=== PATIENT | male | born 1945 | race African-American/Black ===

== ENCOUNTER 2025-06-19 22:12 | Emergency (ER) | payer OTHER, SELFPAY ==
--- NOTE | 2025-06-19 | ECG_ITS ---
Test Reason : SYNCOPY Blood Pressure : */* mmHG Vent. Rate : 75 BPM Atrial Rate : 75 BPM P-R Int : 152 ms QRS Dur : 86 ms QT Int : 406 ms P-R-T Axes : 49 -22 2 degrees QTcB Int : 453 ms Normal sinus rhythm Nonspecific ST and T wave abnormality Abnormal ECG No previous ECGs available Referred By: Generic ED Physician Electronically Signed By: Fabricio Nugent
--- NOTE | ~2025-06-19 | XR_ITS ---
CLINICAL HISTORY: syncope 1 view chest x-ray Comparison: None provided Findings: No consolidation or pleural effusion. Normal size heart. No acute fracture. IMPRESSION: 1. No acute findings. This document has been electronically signed by: Angeli Roper MD on 06/19/2025 23:29:00
[2025-06-19 22:23] VITALS: BP 120/71; BP 125/87; PULSE 82; PULSE 85; RESP 15; TEMP 36.8; O2SAT 99; BMI 24.7
[2025-06-19 22:39] LABS: Hematocrit 39.3 % (42.0-52.0); Hemoglobin 12.6 g/dl (14.0-18.0); Imm Gran Abs Auto 0.01 X10*3/uL (0.00-0.03); Imm Gran Pct Auto 0.2 % (0.0-0.4); Lymphocytes Absolute Auto 1.3 X10*3/uL (1.2-4.9); MANUAL DIFF FLAG NO; Mean Corpuscular HGB Conc 32.1 g/dl (31.0-36.0); Mean Corpuscular Hemoglobin 29.4 pg (27.0-33.0); Mean Corpuscular Volume 91.8 fL (80.0-98.0); NRBC Abs Auto 0.000 X10*3/uL (0.0-0.012); NRBC Pct Auto 0.0 /100WBC (0.0-0.2); Platelet Count 231 X10*3/uL (160-400); Red Blood Count 4.28 X10*6/uL (4.60-5.80); White Blood Count 4.0 X10*3/uL (4.8-10.8)
--- OUTSIDE RECORDS SUMMARY | 2025-06-19 22:48 | XMS_ITS | Encounter Summary ---
Author Organization [facility] Address [address] [place] [address] Care Team Providers Care Armored Machine Operator Name Role Phone Seven Gilliam MD Primary Care Provider Unava ilable Encounter Details Date Type Department Care Team (Latest Contact Info) Description 10/01/2017 Transcribed Orders [place] [facility] [address] [place] [address] Seven Gilliam MD Normocytic hypochromic anemia (Primary Dx); Essential hypertension, malignant; Hyperlipemia Social History Tobacco Use Types Packs/Day Years Used Date Smoking Tobacco: Never Smokeless Tobacco: Never Alcohol Use Standard Drinks/Week Comments Yes 2 (1 standard drink = 0.6 oz pur e alcohol) Sex and Gender Information Value Date Recorded Sex Assigned at Not on file Legal Sex Male 7:21 AM EST Gender Identity Not on file Sexual Orientation Not on file documented as of this encounter Plan of Treatment Not on file documented as of this encounter Results * (ABNORMAL) Iron and TIBC (10/01/2017 1:31 PM EST) Iron 185(H) 59 - 158 ug/dL 10/01/2017 5:46 PM EST [facility] Iron Saturation 67(H) 20 - 50 % 8 5:46 PM EST [facility] TIBC 276 250 - 450 ug/dL 10/01/2017 5:46 PM [facility] Blood specimen (specimen) Venipuncture / Unknown 10/01/2017 1:31 PM EST 10/01/2017 1:31 PM EST us Seven Gilliam MD LAB BLOOD ORDERABLES Final R esult [facility] [address] [place] [address], [facility] [phone] * (ABNORMAL) LIPID PANEL (10/01/2017 1:31 PM EST) Cholesterol 191 See Comment mg/dL 10/01/2017 5:38 PM [facility] Comment: Total Cholesterol (mg/dL) Adults (>18 years) Children (<18 years) Desirable <200 <170 Borderline-High 200-239 170-199 High >=240 >=200 HDL 72 >=40 mg/dL 10/01/2017 5:38 PM [facility] Triglycerides 60 <=150 mg/dL 10/01/2017 5:38 PM [facility] Comment: Triglycerides (mg/dL) Adults (>18 years) Children (<18 years) Desirable <150 Not Established Borderline-High 150-199 Not Established High 200-499 Not Established Chol/HDL Ratio 2.7 <=5 10/01/2017 5:38 PM [facility] LDL Calculated 107(H) See Comment mg/dL 10/01/2017 5:38 PM [facility] Comment: LDL Cholesterol (mg/dL) Adults (>18 years) Children (<18 years) Desirable <100 <110 Above Desirable 100-129 Not Established Borderline-High 130-159 110-129 High 160-189 >=130 Very High >=190 Not Established Blood specimen (specimen) Venipuncture / Unknown 10/01/2017 1:31 PM EST 10/01/2017 1:31 PM EST us Seven Gilliam MD LAB BLOOD ORDERABLES Final R esult [facility] [place] [address], [facility] [phone] documented in this encounter Visit Diagnoses Diagnosis Normocytic hypochromic anemia- Primary Iron deficiency anemia, unspecified Essential hypertension, malignant Hyperlipemia Other and unspecified hyperlipidemia documented in this encounter Care Teams Armored Machine Operator Relationship Specialty Start Date End Date Seven Gilliam MD PCP - General Internal Medicine 09/03/13 documented as of this encounter
--- OUTSIDE RECORDS SUMMARY | 2025-06-19 22:48 | XMS_ITS | Clinical Summary ---
Author Organization [facility] Address [address] [place] [address] Care Team Providers Care Hand Turner Name Role Phone Melany Andrade MD Primary Care Provider [phone] Allergies No known active allergies Medications Multiple Vitamin (Multi-Vitamin) tablet Take 1 tablet by mouth daily. Active omega-3 fatty acids 1000 MG Cap capsule Take 2 capsules (2 g total) by mouth. Active chlorthalidone (HYGROTON) 25 MG tablet Take 0.5 tablets (12.5 mg total) by mouth daily. Active atorvastatin (LIPITOR) 20 MG tablet Take 1 tablet (20 mg total) by mouth daily. Active tadalafil (CIALIS) 20 MG tablet Take 1 tablet (20 mg total) by mouth daily as needed for erectile dysfunction. Active latanoprost (XALATAN) 0.005 % ophthalmic solution 1 drop nightly. Active terbinafine (LamiSIL) 250 MG tablet Take 1 tablet (250 mg total) by mouth daily. Active Active Problems No known active problems Family History Medical History Relation Name Comments Lung cancer Father Breast cancer Mother Breast cancer Sister Relation Name Status Comments Father Mother Sister Social History Tobacco Use Types Packs/Day Years Used Date Smoking Tobacco: Never Smokeless Tobacco: Never Tobacco Cessation:Counseling Given: Not Answered Alcohol Use Standard Drinks/Week Comments Not Currently 2 (1 standard drink = 0.6 oz pur e alcohol) with dinner Sex and Gender Information Value Date Recorded Sex Assigned at Male 03/25/2023 10:57 AM EDT Legal Sex Male 7:14 PM EST Gender Identity Male 03/25/2023 10:57 AM EDT Sexual Orientation Choose not to disclose 2022 10:57 AM EDT Last Filed Vital Signs Vital Sign Reading Time Taken Comments Blood Pressure 132/85 03/25/2023 11:02 AM EDT Pulse 101 03/25/2023 11:02 AM EDT Temperature - - Respiratory Rate - - Oxygen Saturation - - Inhaled Oxygen Concentration - - Weight 73 kg (161 lb) 03/25/2023 11:02 AM EDT Height 171.5 cm (5' 7.5 ) 03/25/2023 11:02 AM ED T Body Mass Index 24.84 03/25/2023 11:02 AM EDT Plan of Treatment Health Maintenance Due Date Last Done Comments Advance Care Planning 1945 Hepatitis C Virus Screening 1945 DTaP/Tdap/Td Vaccines (1 - Tdap) 1965 Pneumococcal Vaccines 50+ (1 of 1 - PCV) 1996 Zoster (Shingles) Vaccine (1 of 2) 1996 RSV Vaccine 60 years and old er and Patients (1 - 1-dose 75+ series) 2021 Influenza Vaccine 04/08/2025 COVID-19 Vaccine ( - 2023-2 5 season) 2025 Hepatitis B Vaccines Aged Out No long er eligible based on patient's age to complete this topic [place] [id number] Care Teams Hand Turner Relationship Specialty Start Date End Date Melany Andrade MD [address] [place], [place] [address] PCP - General Internal Medicine 02/27/23
--- OUTSIDE RECORDS SUMMARY | 2025-06-19 22:48 | XMS_ITS ---
Author Name [facility] History of Medication Use Medication Directions Dispensed Refills Start Date End Date Stat us atorvastatin (LIPITOR) 20 MG tablet Take 1 tablet (20 mg total) by mouth daily. active chlorthalidone (HYGROTON) 25 MG tablet Take 0.5 tablets (12.5 mg total) by mouth daily. active latanoprost (XALATAN) 0.005 % ophthalmic solution 1 drop nightly. active Multiple Vitamin (Multi-Vitamin) tablet Take 1 tablet by mouth daily. active omega-3 fatty acids 1000 MG Cap capsule Take 2 capsules (2 g total) by mouth. active tadalafil (CIALIS) 20 MG tablet Take 1 tablet (20 mg total) by mouth daily as needed for erectile dysfunction. active terbinafine (LamiSIL) 250 MG tablet Take 1 tablet (250 mg total) by mouth daily. active Encounters Encounter Type Encounter Reason Primary Diagnosis Location Date Ambulatory Unilateral ingui nal hernia, without obstruction or gangrene, not specified as recurrent [facility] 03[facility]23 [facility] 03/13/2023 [facility]ulatory [facility] 03/13/2023 Ambulatory Left lower quadr ant pain [facility] 03/03/2023 Care Team Organization Name Specialty Phone Email Start Date End [facility] 07/11/2023 024 [facility] 03/03/2023 03/03/2023 [facility] 03/03/2023
--- OUTSIDE RECORDS SUMMARY | 2025-06-19 22:48 | XMS_ITS | Encounter Summary ---
Author Organization [facility] Address [address] [place] [address] Care Team Providers Care Underground Bolting Machine Operator Name Role Phone Seven Gilliam MD Primary Care Provider Unava ilable Encounter Details Date Type Department Care Team (Latest Contact Info) Description 09/25/2016 Transcribed Orders [place] [facility] [address] [place] [address] Seven Gilliam MD Essential hypertension, malignant (Primary Dx); Other and unspecified hyperlipidemia; Iron deficiency anemia, unspecified Social History Tobacco Use Types Packs/Day Years Used Date Smoking Tobacco: Never Alcohol Use Standard Drinks/Week Comments [...] documented as of this encounter Results * LIPID PANEL (09/25/2016 11:31 AM EST) [facility] Cholesterol 176 See Comment mg/dL 09/25/2016 2:05 PM EST [facility] Comment: Total Cholesterol (mg/dL) Adults (>18 years) Children (<18 years) Desirable <200 <170 Borderline-High 200-239 170-199 High >=240 >=200 HDL 73 >=40 mg/dL 09/25/2016 2:05 PM [facility] Triglycerides 40 See Comment mg/dL 09/25/2016 2:05 PM [facility] Comment: Triglycerides (mg/dL) Adults (>18 years) Children (<18 years) Desirable <150 Not Established Borderline-High 150-199 Not Established High 200-499 Not Established Chol/HDL Ratio 2.4 <=5 09/25/2016 2:05 PM [facility] LDL Calculated 95 See Comment mg/dL 09/25/2016 2:05 PM [facility] Comment: LDL Cholesterol (mg/dL) Adults (>18 years) Children (<18 years) Desirable <100 <110 Above Desirable 100-129 Not Established Borderline-High 130-159 110-129 High 160-189 >=130 Very High >=190 Not Established Blood specimen (specimen) Venipuncture / Unknown 09/25/2016 11:31 AM EST 09/25/2016 11:31 AM EST Narrative [facility] - 09/25/2016 2:05 PM EST R1 us Seven Gilliam MD LAB BLOOD ORDERABLES Final R esult [facility] [address] [place] [address], [facility] [phone] documented in this encounter Visit Diagnoses Diagnosis Essential hypertension, malignant- Primary Other and unspecified hyperlipidemia Iron deficiency anemia, unspecified documented in this encounter Care Teams Underground Bolting Machine Operator Relationship Specialty Start Date End Date Seven Gilliam MD PCP - General Internal Medicine 09/03/13 documented as of this encounter
--- OUTSIDE RECORDS SUMMARY | 2025-06-19 22:48 | XMS_ITS | Encounter Summary ---
Author Organization [facility] Address [address] [place] [address] Care Team Providers Care Emergency Communications Dispatcher Name Role Phone Seven Gilliam MD Primary Care Provider Unava ilable Encounter Details Date Type Department Care Team (Late st Contact Info) Description 12/15/2014 Scanned Document [facility] at [facility] [address] [address] Obtain, Unable To Social History Tobacco Use Types Packs/Day Years Used Date Smoking Tobacco: Never Assessed Sex and Gender Information Value Date Recorded Sex Assigned at Not on file Legal Sex Male 7:21 AM EST Gender Identity Not on file Sexual Orientation Not on file documented as of this encounter Plan of Treatment Not on file documented as of this encounter Visit Diagnoses Not on filedocumented in this encounter Care Teams Emergency Communications Dispatcher Relationship Specialty Start Date End Date Seven Gilliam MD PCP - General Internal Medicine 09/03/13 documented as of this encounter
--- OUTSIDE RECORDS SUMMARY | 2025-06-19 22:48 | XMS_ITS | Encounter Summary ---
Author Organization [facility] Address [address] [place] [address] Care Team Providers Care Customer Resolution Specialist Name Role Phone Seven Gilliam MD Primary Care Provider Unava ilable Encounter Details Date Type Department Care Team (Latest Contact Info) Description 09/07/2014 Transcribed Orders [place] [facility] - [facility] [address] [place] [address] Seven Gilliam MD Iron deficiency anemia secondary to blood loss (chronic) (Primary Dx); Pure hypercholesterolemia ; Unspecified essential hypertension Social History Tobacco Use Types Packs/Day Years Used Date Smoking Tobacco: Never Assessed Sex and Gender Information Value Date Recorded Sex Assigned at Not on file Legal Sex Male 7:21 AM EST Gender Identity Not on file Sexual Orientation Not on file documented as of this encounter Plan of Treatment Not on file documented as of this encounter Results * (ABNORMAL) LIPID PANEL (09/07/2014 10:38 AM EST) Cholesterol 207(H) 0 - 200 mg/dL [facility] Comment: < 200 mg/dL (Desirable) 200 - 239 mg/dL (Borderline) >= 240 mg/dL (High risk) HDL 66(H) 40 - 65 mg/dL [facility] Comment: < 40 mg/dL (High risk) >= 60 mg/dL (Low risk) Chol/HDL Ratio 3 [facility] Triglycerides 53 30 - 150 mg/dL [facility] Comment: As of Saturday, September 21, 2013 the reference range for triglycerides will be 30-150mg/dL (previous 0-150mg/dL). For any questions please contact Dian Zaragoza at , or Dr. Rahul Blood at [phone]. Blood specimen (specimen) 09/07/2014 10:38 AM EST us Seven Gilliam MD LAB BLOOD ORDERABLES Final R esult [facility] [address] [place] [id number] * (ABNORMAL) COMPREHENSIVE METABOLIC PANEL (09/07/2014 10:38 AM EST) Glucose 101(H) 70 - 100 mg/dL [facility] BUN 13 6 - 19 mg/dL [facility] Creatinine 1.0 0.6 - 1.2 mg/dL [facility] BUN/Creatinine Ratio 13.0 10.0 - 20.0 [facility] Anion Gap 7 5 - 15 [facility] CO2 29.0 23.0 - 29.0 mmol/L [facility] Chloride 106 96 - 108 mmol/L [facility] Sodium 142 133 - 145 mmol/L [facility] Potassium 4.6 3.3 - 5.0 mmol/L [facility] Comment: As of 2014 the new reference range of Potassium will be 3.3 - 5.0 mmol/L. The previous reference range was 3.3 - 5.1 mmol/L. Calcium 9.0 8.4 - 10.2 mg/dL [facility] Total Protein 6.5 5.8 - 7.6 g/dL [facility] Albumin 4.3 3.9 - 4.8 g/dL [facility] Globulin 2.2(L) 2.3 - 3.5 g/dL [facility] A/G Ratio 2.0 1.0 - 2.2 [facility] Aspartate Aminotransferase (AST) 24 0 - 37 U/L [facility] Alanine Aminotransferase (ALT) 24 0 - 40 U/L [facility] Alkaline Phosphatase 59 39 - 117 U/L [facility] Total Bilirubin 0.5 <1.20 mg/dL [facility] Blood specimen (specimen) 09/07/2014 10:38 AM EST us Seven Gilliam MD LAB BLOOD ORDERABLES Final R esult [facility] [address] [place] [address] * (ABNORMAL) CBC AND DIFFERENTIAL (09/07/2014 10:38 AM EST) CBC with Differential See Below [facility] WBC 4.5 4.0 - 10.5 x 1000/uL [facility] RBC 4.7 4.7 - 6.0 M/uL [facility] Hemoglobin 13.7 13.5 - 18.0 g/dL [facility] Hematocrit 42.1 42.0 - 52.0 % [facility] MCV 89 78 - 100 fL [facility] MCH 28.9 27.0 - 31.0 pg [facility] MCHC 32.5 32.0 - 36.0 g/dL [facility] RDW 12.8 11.5 - 14.0 % [facility] Platelets 269 150 - 450 x 1000/uL [facility] MPV 8.2 6.0 - 9.5 fL [facility] Neutrophils 52 42 - 75 % [facility] Lymphocytes 33 21 - 51 % [facility] Monocytes 10(H) 2 - 9 % [facility] Eosinophils 4 0 - 10 % [facility] Basophils 1 0 - 1 % [facility] ANC (Abs Neutrophil Count) 2.3 1.4 - 6.5 x 1000/uL [facility] Absolute Lymphocyte Count 1.5 1.2 - 3.4 x 1000/uL [facility] Blood specimen (specimen) ARM NEC / Unknown 09/07/2014 10:38 AM EST us Seven Gilliam MD LAB BLOOD ORDERABLES Final R esult [facility] [address] [place] [address] documented in this encounter Visit Diagnoses Diagnosis 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
--- OUTSIDE RECORDS SUMMARY | 2025-06-19 22:48 | XMS_ITS | Clinical Summary ---
Author Organization [facility] [address] [facility] Address [address] [place] [address] Care Team Providers Care Senior Financial Consultant Name Role Phone Seven Gilliam MD Primary Care Provider Bull illisa Allergies No known active allergies Medications * This document contains information received from the source organization and may not represent a complete record from that organization. fish oil-omega-3 fatty acids 1,000 mg capsule Take 2 g by mouth daily. Active multivitamin (MULTIVITAMIN) tablet Take 1 tablet by mouth daily. Active losartan (COZAAR) 50 MG tablet Take 50 mg by mouth daily. 0 01/03/2015 Active meloxicam (MOBIC) 15 MG tablet Take 15 mg by mouth as needed. 2 09/01/2014 Active Active Problems Problem Noted Date Diagnosed Date Prostate cancer (HC Code) 01/16/2015 Overview (01/16/2015): Family History Medical History Relation Name Comments Cancer Father Cancer Mother Breast cancer Sister Multiple myeloma Sister Anal Cancer Neg Hx Bladder cancer Neg Hx Cervical cancer Neg Hx Colon cancer Neg Hx Diabetes Neg Hx Endometrial cancer Neg Hx Esophageal cancer Neg Hx Head & Neck cancer Neg Hx Heart disease Neg Hx Hypertension Neg Hx Leukemia Neg Hx Lung cancer Neg Hx Lymphoma Neg Hx Melanoma Neg Hx Ovarian cancer Neg Hx Pancreatic cancer Neg Hx Prostate cancer Neg Hx Rectal cancer Neg Hx Renal cancer Neg Hx Thyroid cancer Neg Hx Relation Name Status Comments Father Mother Sister Alive Social History Tobacco Use Types Packs/Day Years Used Date Smoking Tobacco: Never Smokeless Tobacco: Never Alcohol Use Standard Drinks/Week Comments Yes 2 (1 standard drink = 0.6 oz pur e alcohol) Sex and Gender Information Value Date Recorded Sex Assigned at Not on file Legal Sex Male 7:21 AM EST Gender Identity Not on file Sexual Orientation Not on file Last Filed Vital Signs Vital Sign Reading Time Taken Comments Blood Pressure 157/104 06/28/2017 9:23 AM EDT Pulse 76 06/28/2017 9:23 AM EDT Temperature 36.8 C (98.2 F) 06/28/2017 9:23 AM EDT Respiratory Rate 18 06/28/2017 9:23 AM EDT Oxygen Saturation 97% 06/28/2017 9:23 AM EDT Inhaled Oxygen Concentration - - Weight 74.8 kg (165 lb) 06/28/2017 9:23 AM EDT Height 167.6 cm (5' 6 ) 06/30/2015 10:48 AM EDT Body Mass Index 26.63 06/30/2015 10:48 AM EDT Plan of Treatment Health Maintenance Due Date Last Done Comments HIV screening 1959 Hepatitis C screening 1964 Tetanus adult (Td q 10,TDAP once) 1966 Pneumococcal Vaccine (50+ years) (1 of 1 - PCV) 1996 Shingles vaccine (Shingrix) (1 of 2 - Shingrix (RZV) 2 Dose Standard Series) 1996 Diabetes screening 10/01/2020 10/01/2017, 0 04/26/2017, 09/25/2016, Additional history exists RSV Immunization (1 - 1-dose 75+ series) 2021 Lipid disorder screening 10/01/2022 018, 09/25/2016, 09/09/2015, Additional history exists Influenza vaccine 04/08/2025 Covid-19 vaccine series ( season) 2025 Colon cancer screening, Colonoscopy Discontinued 10/25/2013, 10/25/2013 Meningococcal B Vaccine Aged Out No l onger eligible based on patient's age to complete this topic Meningococcal Vaccine Aged Out No angelic sadiq eligible based on patient's age to complete this topic Procedures Procedure Name Priority Date/Time Associated Diagnosis Comments COMPREHENSIVE METABOLIC PANEL Routine 10/01/2017 1:31 PM EST Normocytic hypochromic anemia Essential hypertension, malignant Hyperlipemia LIPID PANEL Routine 10/01/2017 1:31 PM EST Normocytic hypochromic anemia Essential hypertension, malignant Hyperlipemia COLONOSCOPY (IMAGES) Routine 10/25/2013 10:37 AM EST from Last 3 Months or Most Recently Relevant to Health Maintenance Results * Comprehensive metabolic panel (10/01/2017 1:31 PM EST) Sodium 141 136 - 145 mmol/L 10/01/2017 5:38 PM [facility] Potassium 4.6 3.3 - 5.0 mmol/L 10/01/2017 5:38 PM [facility] Chloride 103 96 - 108 mmol/L 10/01/2017 5:38 PM [facility] CO2 27 22 - 29 mmol/L 10/01/2017 5:38 PM [facility] Anion Gap 11 7 - 17 10/01/2017 5:38 PM [facility] Glucose 94 70 - 100 mg/dL 10/01/2017 5:38 PM [facility] BUN 14 8 - 23 mg/dL 10/01/2017 5:38 PM [facility] Creatinine 1.10 0.50 - 1.20 mg/dL 10/01/2017 5:38 PM [facility] Calcium 9.0 8.8 - 10.2 mg/dL 10/01/2017 5:38 PM [facility] BUN/Creatinine Ratio 12.7 10.0 - 20.0 10/01/2017 5:38 PM [facility] Total Protein 6.6 6.6 - 8.7 g/dL 10/01/2017 5:38 PM [facility] Albumin 3.9 3.9 - 4.9 g/dL 10/01/2017 5:38 PM [facility] Total Bilirubin 0.6 0.0 - 1.2 mg/dL 10/01/2017 5:38 PM [facility] Alkaline Phosphatase 61 40 - 129 U/L 10/01/2017 5:38 PM [facility] Alanine Aminotransferase (ALT) 18 0 - 41 U/L 10/01/2017 5:38 PM [facility] Aspartate Aminotransferase (AST) 24 0 - 40 U/L 10/01/2017 5:38 PM [facility] Globulin 2.7 2.3 - 3.5 g/dL 10/01/2017 5:38 PM [facility] A/G Ratio 1.4 1.0 - 2.2 10/01/2017 5:38 PM [facility] AST/ALT Ratio 1.3 0.3 - 4.9 10/01/2017 5:38 PM [facility] eGFR (Afr Amer) >60 >60 mL/min/1. 73m2 10/01/2017 5:38 PM [facility] Comment: Values under 60mL/min/1.73m2 may indicate CKD if noted for more than 3 months. eGFR is only valid if creatinine is at steady state. eGFR (NON -Japanese) >60 >60 mL/min/1. 73m2 10/01/2017 5:38 PM [facility] Comment: Values under 60mL/min/1.73m2 may indicate CKD if noted for more than 3 months. eGFR is only valid if creatinine is at steady state. Blood specimen (specimen) Venipuncture / Unknown 10/01/2017 1:31 PM EST 10/01/2017 1:31 PM EST Seven Gilliam MD LAB BLOOD ORDERABLES Final R esult [facility] [address] [place] [address], [facility] [phone] * (ABNORMAL) LIPID PANEL (10/01/2017 1:31 PM EST) Cholesterol 191 See Comment mg/dL 10/01/2017 5:38 PM [facility] Comment: Total Cholesterol (mg/dL) Adults (>18 years) Children (<18 years) Desirable <200 <170 Borderline-High 200-239 170-199 High >=240 >=200 HDL 72 >=40 mg/dL 10/01/2017 5:38 PM [facility] Triglycerides 60 <=150 mg/dL 10/01/2017 5:38 PM [facility] Comment: Triglycerides (mg/dL) Adults (>18 years) Children (<18 years) Desirable <150 Not Established Borderline-High 150-199 Not Established High 200-499 Not Established Chol/HDL Ratio 2.7 <=5 10/01/2017 5:38 PM [facility] LDL Calculated 107(H) See Comment mg/dL 10/01/2017 5:38 PM [facility] Comment: LDL Cholesterol (mg/dL) Adults (>18 years) Children (<18 years) Desirable <100 <110 Above Desirable 100-129 Not Established Borderline-High 130-159 110-129 High 160-189 >=130 Very High >=190 Not Established Blood specimen (specimen) Venipuncture / Unknown 10/01/2017 1:31 PM EST 10/01/2017 1:31 PM EST Seven Gilliam MD LAB BLOOD ORDERABLES Final R esult [facility] [address] [place] [address], [facility] [phone] * Colonoscopy (10/25/2013 10:37 AM EST) Colonoscopy Indications: Screening. Consent: The benefits, risks, and alternatives to the procedure were discussed and informed consent was obtained from the patient. Preparation: Pulse, pulse oximetry and blood pressure were monitored throughout the procedure. The patient was kept NPO. ASA Classification: Class 1 - Patient has no organic, physiologic, biochemical, or psychiatric disturbance. Mallampati Classification: Class 1 - Uvula, faucial pillars, soft palate visible. H & P: Prior to sedation, pre-procedure update to the history and physical examination was performed. Medications: Versed 2 mg IV during the procedure. Demerol 50 mg IV during the procedure. Rectal Exam: Normal rectal exam. No fissures. No fistulas. No masses. Procedure: The colonoscope was passed with great difficulty through the anus under direct visualization; it was extended to the cecum, confirmed by appendiceal orifice, ileocecal valve, appendiceal orifice, cecal strap (ak chin's foot), ileocecal valve, RLQ palpation, distance, landmarks, photographs, and transillumination. The patient required counterpressure and positioning on the back to aid in the passage of the scope. The scope was withdrawn and the mucosa was carefully examined. The quality of the preparation was good. The views were good. The patient's toleration of the procedure was good. Retroflexion was performed in the rectum. Findings: Colonoscopy ws extremely diffficult due to dense pelvic adhesions from prior prostate surgeryu with fixation of multiple loops deep with the pelvis. Passage was difficult despite the use of a PCF-H180 pediatric scope. Each segment of the colon was repeatedly examined. In addition, a second-look of the left colon was performed to 55 cms and no additional findings noted. Internal hemorrhoid tags were found in the rectum. There was redundancy of the sigmoid colon and descending colon. There was evidence of mild diverticulosis in the sigmoid colon. Complications: There were no complications associated with the procedure. Impressions: Colonoscopy ws extremely diffficult due to dense pelvic adhesions from prior prostate surgeryu with fixation of multiple loops deep with the pelvis. Passage was difficult despite the use of a PCF-H180 pediatric scope. Each segment of the colon was repeatedly examined. In addition, a second-look of the left colon was performed to 55 cms and no additional findings noted. Internal hemorrhoid tags were found in the rectum. Redundancy of the sigmoid colon and descending colon was found. Mild diverticulosis (562.10) found in the sigmoid colon. Recommendations: No further screening necessary above age 65. Resume regular diet as tolerated. Continue current medications. Follow-up appointment with primary care physician on an as needed basis. Procedure Codes: [92086]Colonoscopy Performed By: Dr. Isaak Velázquez cc:Dr. Seven Gilliam Timing: Time to cecum: 11 min Cecum to withdrawal: 19 min Duration: 30 min [facility] 10/25/2013 10:3 7 AM EST Joe Velázquez MD GI PROCEDURE ORDERABLES Abena lucio Result [facility] from Last 3 Months or Most Recently Relevant to Health Maintenance Insurance MEDICARE [facility] MEDICARE [facility] MEDICARE [facility] MEDICARE [employer] Care Teams Senior Financial Consultant Relationship Specialty Start Date End Date Seven Gilliam MD PCP - General Internal Medicine 09/03/13
--- OUTSIDE RECORDS SUMMARY | 2025-06-19 22:48 | XMS_ITS | Encounter Summary ---
Author Organization [facility] Address [address] [place] [address] Care Team Providers Care Physician Office Clin Asst Name Role Phone Seven Gilliam MD Primary Care Provider Unava ilable Encounter Details Date Type Department Care Team (Late st Contact Info) Description 05/01/2015 Documentation [facility] [address] [place] [address] Nemo Davis [address] [place] [address] Social History Tobacco Use Types Packs/Day Years Used Date Smoking Tobacco: Never Alcohol Use Standard Drinks/Week Comments Yes 2 (1 standard drink = 0.6 oz pur e alcohol) Sex and Gender Information Value Date Recorded Sex Assigned at Not on file Legal Sex Male 7:21 AM EST Gender Identity Not on file Sexual Orientation Not on file documented as of this encounter Progress Notes * Nemo Davis - 05/01/2015 9:57 AM EDT Images from the original note were not included. [facility] Progress Note This is a 69 y.o. male who was provided services by [facility]. Service Provided By:: Nemo Davis Patient Status: return Length of Appointment: 60 minutes Pre-Treatment Total: 0.4 Post-Treatment Total: 0 documented in this encounter Plan of Treatment Not on file documented as of this encounter Visit Diagnoses Not on filedocumented in this encounter Care Teams Physician Office Clin Asst Relationship Specialty Start Date End Date Seven Gilliam MD PCP - General Internal Medicine 09/03/13 documented as of this encounter
--- OUTSIDE RECORDS SUMMARY | 2025-06-19 22:48 | XMS_ITS | Encounter Summary ---
Author Organization [facility] and [facility] Address [address] [place] [address] Care Team Providers Care Radiation Therapy Technician Name Role Phone Seven Gilliam MD Primary Care Provider Unava ilable Encounter Details Date Type Department Care Team (Latest Contact Info) Description 09/09/2015 Transcribed Orders [facility] [address] [place] [address] Seven Gilliam MD Normocytic hypochromic anemia (Primary Dx); Hyperestrogenism; Essential hypertension, malignant Social History Tobacco Use Types Packs/Day Years [...] this encounter Results * (ABNORMAL) LIPID PANEL (09/09/2015 9:48 AM EST) Cholesterol 192 0 - 200 mg/dL [facility] Comment: < 200 mg/dL (Desirable) 200 - 239 mg/dL (Borderline) >= 240 mg/dL (High risk) HDL 80(H) 40 - 65 mg/dL [facility] Comment: < 40 mg/dL (High risk) >= 60 mg/dL (Low risk) Triglycerides 83 30 - 150 mg/dL [facility] Chol/HDL Ratio 2 [facility] Blood specimen (specimen) 09/09/2015 9:48 AM EST us Seven Gilliam MD LAB BLOOD ORDERABLES Final R esult Performing Organization Address [facility] Co de Phone Number [facility] [address] [place] [phone] * (ABNORMAL) COMPREHENSIVE METABOLIC PANEL (09/09/2015 9:48 AM EST) Glucose 92 70 - 100 mg/dL [facility] BUN 10 6 - 19 mg/dL [facility] Creatinine 1.1 0.6 - 1.2 mg/dL [facility] Anion Gap 10 5 - 15 [facility] CO2 29.0 23.0 - 29.0 mmol/L [facility] Chloride 104 96 - 108 mmol/L [facility] Sodium 143 133 - 145 mmol/L [facility] Potassium 4.1 3.3 - 5.0 mmol/L [facility] Calcium 9.1 8.4 - 10.2 mg/dL [facility] Total Protein 6.4 5.8 - 7.6 g/dL [facility] Albumin 4.2 3.9 - 4.8 g/dL [facility] Globulin 2.2(L) 2.3 - 3.5 g/dL [facility] A/G Ratio 1.9 1.0 - 2.2 [facility] Aspartate Aminotransferase (AST) 21 0 - 37 U/L [facility] Alanine Aminotransferase (ALT) 15 0 - 40 U/L [facility] Alkaline Phosphatase 63 39 - 117 U/L [facility] Total Bilirubin 0.7 <1.20 mg/dL [facility] Blood specimen (specimen) 09/09/2015 9:48 AM EST us Seven Gilliam MD LAB BLOOD ORDERABLES Final R esult Performing Organization Address City/[facility]/ZIP Co de Phone Number [facility] [address] [place] [phone] * (ABNORMAL) CBC AND DIFFERENTIAL (09/09/2015 9:48 AM EST) CBC with Differential See Below [facility] WBC 3.9(L) 4.0 - 10.0 x 1000/uL [facility] RBC 4.8 4.3 - 5.9 M/uL [facility] Hemoglobin 13.8(L) 14.0 - 18.0 g/dL [facility] Hematocrit 43.6 40.0 - 52.0 % [facility] MCV 90 78 - 94 fL [facility] MCH 28.7 27.0 - 33.0 pg [facility] MCHC 31.7(L) 33.0 - 37.0 g/dL [facility] RDW 11.8 10.8 - 14.5 % [facility] Platelets 237 150 - 350 x 1000/uL [facility] MPV 6.9 6.0 - 10.0 fL [facility] Neutrophils 48 38 - 71 % [facility] Lymphocytes 30 14 - 46 % [facility] Monocytes 13 2 - 15 % [facility] Eosinophils 7(H) 0 - 5 % [facility] Basophils 2 0 - 2 % [facility] ANC (Abs Neutrophil Count) 1.9 1.0 - 9.0 x 1000/uL [facility] Absolute Lymphocyte Count 1.2 0.6 - 4.6 x 1000/uL [facility] Blood specimen (specimen) ARM NEC / Unknown 09/09/2015 9:48 AM EST Seven Gilliam MD LAB BLOOD ORDERABLES Final R esult [facility] [address] [place] [phone] documented in this encounter Visit Diagnoses Diagnosis Normocytic hypochromic anemia- Primary Iron deficiency anemia, unspecified Hyperestrogenism Essential hypertension, malignant documented in this encounter Care Teams Radiation Therapy Technician Relationship Specialty Start Date End Date Seven Gilliam MD PCP - General Internal Medicine 09/03/13 documented as of this encounter
--- OUTSIDE RECORDS SUMMARY | 2025-06-19 22:48 | XMS_ITS | Encounter Summary ---
Author Organization [facility] Address [address] [place] [address] Care Team Providers Care Actuarial Science Professor Name Role Phone Seven Gilliam MD Primary Care Provider Unava ilable Encounter Details Date Type Department Care Team (Latest Contact Info) Description 05/30/2015 Transcribed Orders Lab Specimens [address] [place] [address] Conor Collins MD [address] [place] [phone] Observation for unspecified suspected condition (Primary Dx) Social History Tobacco Use Types Packs/Day Years [...] on file documented as of this encounter Procedures Procedure Name Priority Date/Time Associated Diagnosis Comments PSA, TOTAL (POST DIAGNOSIS) (BH [facility] LMW YH) Routine 05/30/2015 12:36 PM EDT documented in this encounter Results * Prostate specific antigen, total (YH) (05/30/2015 12:36 PM EDT) Prostate Specific Antigen, Total (YH) 0.010 0.000 - 3.900 ng/mL [facility] Comment:This assay is perfor med on the [employer] platform using [employer] standards. 05/30/2015 12:3 6 PM EDT us Conor Collins MD LAB BLOOD ORDERABLES Final Resu lt Performing Organization Address City/State/[facility] Co de Phone Number [facility] [address] [place] [phone] documented in this encounter Visit Diagnoses Diagnosis Observation for unspecified suspected condition- Primary documented in this encounter Care Teams Actuarial Science Professor Relationship Specialty Start Date End Date Seven Gilliam MD PCP - General Internal Medicine 09/03/13 documented as of this encounter
--- OUTSIDE RECORDS SUMMARY | 2025-06-19 22:48 | XMS_ITS | Encounter Summary ---
Author Organization [facility] Address [address] [place] [address] Care Team Providers Care Cage Operator Name Role Phone Seven Gilliam MD Primary Care Provider Unava ilable Encounter Details Date Type Department Care Team (Latest Contact Info) Description 09/03/2013 Transcribed Orders [place] [facility] [address] [place] [address] Seven Gilliam MD Unspecified essential hypertension (Primary Dx); Personal history of malignant neoplasm of prostate; Abdominal pain, unspecified site; Pure hypercholesterolemia ; Iron deficiency anemia secondary to blood loss (chronic) Social History Tobacco Use Types Packs/Day Years Used Date Smoking Tobacco: Never Assessed Sex and Gender Information Value Date Recorded Sex Assigned at Not on file Legal Sex Male 7:21 AM EST Gender Identity Not on file Sexual Orientation Not on file documented as of this encounter Plan of Treatment Not on file documented as of this encounter Results * LIPID PANEL (09/03/2013 9:03 AM EST) Cholesterol 189 115 - 199 mg/dL [facility] Comment: < 200 mg/dL (Desirable) 200 - 239 mg/dL (Borderline) >= 240 mg/dL (High risk) HDL 62 40 - 65 mg/dL [facility] Comment: < 40 mg/dL (High risk) >= 60 mg/dL (Low risk) Triglycerides 70 30 - 150 mg/dL [facility] Chol/HDL Ratio 3 <=5 [facility] Blood specimen (specimen) 09/03/2013 9:03 AM EST us Seven Gilliam MD LAB BLOOD ORDERABLES Final R esult [facility] [address] [place] [phone] * (ABNORMAL) COMPREHENSIVE METABOLIC PANEL (09/03/2013 9:03 AM EST) BUN 11 7 - 20 mg/dL [facility] Creatinine 1.2 0.5 - 1.2 mg/dL [facility] BUN/Creatinine Ratio 9.2(L) 10.0 - 20.0 [facility] Anion Gap 11 7 - 16 [facility] CO2 28.5 22.0 - 30.0 mmol/L [facility] Chloride 103 96 - 106 mmol/L [facility] Sodium 142 135 - 145 mmol/L [facility] Potassium 4.4 3.5 - 5.0 mmol/L [facility] Calcium 9.8 8.8 - 10.2 mg/dL [facility] Total Protein 6.8 6.0 - 8.3 g/dL [facility] Albumin 4.3 3.5 - 5.0 g/dL [facility] Globulin 2.5 2.3 - 3.5 g/dL [facility] A/G Ratio 1.7 1.0 - 2.2 [facility] Aspartate Aminotransferase (AST) 20 0 - 34 U/L [facility] Alanine Aminotransferase (ALT) 13 0 - 34 U/L [facility] Alkaline Phosphatase 55 30 - 130 U/L [facility] Total Bilirubin 0.69 <1.20 mg/dL [facility] Glucose 94 70 - 100 mg/dL [facility] Blood specimen (specimen) 09/03/2013 9:03 AM EST us Seven Gilliam MD LAB BLOOD ORDERABLES Final R esult Performing Organization Address [facility]/ZIP Co de Phone Number [facility] [address] [place] [phone] * (ABNORMAL) CBC AND DIFFERENTIAL (09/03/2013 9:03 AM EST) CBC with Differential See Below [facility] WBC 4.3 4.0 - 10.0 x 1000/uL [facility] RBC 5.1 4.3 - 5.9 M/uL [facility] Hemoglobin 15.0 14.0 - 18.0 g/dL [facility] Hematocrit 46.0 40.0 - 52.0 % [facility] MCV 90 78 - [address] [facility] MCH 29.4 27.0 - 33.[address] [facility] MCHC 32.5(L) 33.0 - 37.0 g/dL [facility] RDW 11.0 10.8 - 14.5 % [facility] Platelets 323 150 - 350 x 1000/uL [facility] MPV 7.0 6.0 - 10.[address] [facility] Neutrophils 40 38 - 71 % [facility] Lymphocytes 41 14 - 46 % [facility] Monocytes 14 2 - 15 % [facility] Eosinophils 5 0 - 5 % [facility] Basophils 1 0 - 2 % [facility] ANC (Abs Neutrophil Count) 1.7 1.0 - 9.0 x 1000/uL [facility] Absolute Lymphocyte Count 1.8 0.6 - 4.6 x 1000/uL [facility] Blood specimen (specimen) ARM NEC / Unknown 09/03/2013 9:03 AM EST Seven Gilliam MD LAB BLOOD ORDERABLES Final R esult Performing Organization Address [facility]/ZIP Co de Phone Number [facility] [address] [place] [phone] documented in this encounter Visit Diagnoses Diagnosis Unspecified essential hypertension- Primary Personal history of malignant neoplasm of prostate Abdominal pain, unspecified site Pure hypercholesterolemia Iron deficiency anemia secondary to blood loss (chronic) documented in this encounter Care Teams Cage Operator Relationship Specialty Start Date End Date Seven Gilliam MD PCP - General Internal Medicine 09/03/13 documented as of this encounter
[2025-06-19 22:55] LABS: Alanine Aminotransferase 16 U/L (0-40); Albumin Level 4.0 g/dL (3.5-5.0); Alkaline Phosphatase 62 U/L (39-117); Anion Gap 12 (12-20); Aspartate Amino Transferase 27 U/L (5-37); Blood Urea Nitrogen 10 mg/dL (9-16); Calcium 8.4 mg/dL (8.4-10.2); Carbon Dioxide 29 mmol/L (22-29); Chloride 102 mmol/L (96-108); Creatinine Clr Calc Pharmacy 58.6; Estimated Glomerular Filt Rate > 60; Magnesium 2.1 mg/dL (1.6-2.6); Potassium 3.3 mmol/L (3.3-5.1); Sodium 140 mmol/L (135-145); Total Protein 6.1 g/dL (6.5-8.0)
[2025-06-19 23:06] LABS: Troponin-I High Sensitivity < 2.7 ng/L (<3.5-35.0)
--- NOTE | 2025-06-19 23:30 | PC.NURSE ---
Assumed care of pt at 2300. PT a/o, spouse at bedside. PT on monitor NSR 82bpm. VSS. PT reports syncopal episode with hx of similar. Awaiting provider
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
[2025-06-20 00:02] VITALS: BP 122/70; PULSE 88; RESP 18; TEMP 36.6; O2SAT 98
[2025-06-20 00:15] LABS: Appearance Urine Clear; Glucose Urine UA Negative (Negative); PH 7.0 (5.0-9.0); Specific Gravity - Urine 1.020 (1.005-1.025); UMIC TRIGGER UACC YES
[2025-06-20 02:24] VITALS: BP 135/87; PULSE 82; RESP 16; TEMP 36.6; O2SAT 95
== END 2025-06-20 02:31 | disposition home or self-care (01) ==
PROVIDERS: Physician Assistant Medical; Emergency Provider Emergency Medicine
DX: R55 Syncope and collapse (principal); R42 Dizziness and giddiness; I10 Essential (primary) hypertension; E78.5 Hyperlipidemia, unspecified
CPT/HCPCS: 36415; 71045; 80053; 81001; 83735; 84484; 85025; 93005; 99283; 99284

== ENCOUNTER → 2025-06-19 22:22 | Outpatient (BNV) | payer OTHER, MEDICARE, SELFPAY | PROVIDERS: Visit Provider Student in an Organized Health Care Education/Training Program | DX: R55 Syncope and collapse (principal) | CPT/HCPCS: 71045 ==

== ENCOUNTER → 2025-06-19 22:23 | Outpatient (BNV) | payer OTHER, SELFPAY | PROVIDERS: Emergency Provider Emergency Medicine; Visit Provider Internal Medicine Cardiovascular Disease | DX: R94.31 Abnormal electrocardiogram [ECG] [EKG] (principal); R55 Syncope and collapse | CPT/HCPCS: 93010 ==